=== PATIENT | female | born 1960 | race Caucasian/White ===

== ENCOUNTER → 2017-04-20 | Outpatient (CLI) | payer BC ==
[~2017-04-20] MED LIST: BYSTOLIC10 MG PO; BYSTOLIC2.5 MG PO; GLUCOPHAGE1000 MG PO; GLUCOPHAGE500 MG/TAB PO; GLUCOTROL 5M5 MG/TAB PO; JANUVIA 100MG100 MG PO; LEVOTHYROXIN0.075 MG PO; MULTIPLE VITAMI1 CAP PO; NORMODYNE100 MG; NORVASC 10MG10 MG PO; PRINIVIL20 MG; PRINIVIL5 MG PO; SIMVASTATIN40 MG PO; SYNTHROID0.075 MG/T PO
== END ==
LOC: MC.RAD 13:03
DX: Z12.31 Encounter for screening mammogram for malignant neoplasm of breast (principal)

== ENCOUNTER 2019-07-09 07:50 | Day surgery (SDC) | payer BC ==
[~2019-07-09] VITALS: Ht 160 cm; Wt 87.0 kg
[2019-07-09 08:21] VITALS: BP 111/77; PULSE 81; TEMP 97.8
[2019-07-09] MEDS ORDERED: FARXIGA10 PO (08:32)
[2019-07-09] MEDS ORDERED: PRENATAL TABLET PO (08:32)
[2019-07-09] MEDS ORDERED: ZESTRIL 5MG5 MG PO (08:32)
[2019-07-09 09:10] VITALS: BP 110/68; PULSE 79; TEMP 97.6
--- NOTE | 2019-07-09 09:10 | NUR ---
Patient brought back to bay [address] from End[facility] suite via cart. Ambulated to chair without difficulty. Placed on monitors, stable. IV infusing without difficulty. Alert but drowsy. Requesting water and diet soda at this time. Friend at bedside. Report recieved from SOPHIE Edgar. Will continue to monitor.
[2019-07-09 09:25] VITALS: BP 98/71; PULSE 77
--- NOTE | 2019-07-09 09:33 | NUR ---
Patient is doing well. Tolerating drink and starting to wake up. Dr. Garcia at bedside to discuss results. Requesting muffin at this time. Vital signs stable. Will continue to monitor.
[2019-07-09 09:40] VITALS: BP 119/76; PULSE 71
--- NOTE | 2019-07-09 09:40 | NUR ---
Patient states she is feeling ready to go home at this time. Tolerating food and drink well. IV removed. Ambulated to bathroom without difficulty. Vital signs stable. pt to get dressed at this time.
--- NOTE | 2019-07-09 10:05 | NUR ---
Discharge instructions reviewed with patient and friend. All questions answered. Pt wheeled down to lobby. Friend to drive patient home.
== END 2019-07-09 10:05 | disposition home or self-care (01) ==
LOC: SDCO 07:50
DX: Z12.11 Encounter for screening for malignant neoplasm of colon (principal); K63.89 Other specified diseases of intestine; K57.30 Diverticulosis of large intestine without perforation or abscess without bleeding; Z91.040 Latex allergy status; Z79.84 Long term (current) use of oral hypoglycemic drugs; I10 Essential (primary) hypertension; E11.9 Type 2 diabetes mellitus without complications; E03.9 Hypothyroidism, unspecified; Z80.0 Family history of malignant neoplasm of digestive organs
CPT/HCPCS: J2704; J7030

== ENCOUNTER 2019-10-27 15:19 | Inpatient (IN) | payer BC ==
[~2019-10-27] VITALS: Ht 157.5 cm; Wt 90.0 kg
[~2019-10-27 15:19] MED LIST changes: +FARXIGA10 PO; +PRENATAL TABLET PO; +ZESTRIL 5MG5 MG PO
[2019-10-27 16:10] LABS: COLLECTION METHOD CLEAN CATCH
[2019-10-27 16:13] LABS: BASO % 0.3 % (0.0-2.0); EOS % 0.1 % (0-4.0); GRAN # 9.7 (1.4-6.5); GRAN % 82.9 % (42.2-75.2); HEMATOCRIT 41.2 % (37.0-47.0); HEMOGLOBIN 14.1 g/dl (12.5-16.0); LYMPH # 1.2 (1.2-3.4); LYMPH % 10.3 % (20.0-51.0); MEAN CELL VOLUME 86 fl (80.0-100.0); MEAN CORPUSCULAR HEMOGLOBIN 30 pg (27.0-31.0); MEAN CORPUSCULAR HGB CONC 34 g/dl (33.0-37.0); MEAN PLATELET VOLUME 10.4 fl (7.4-10.4); MONO # 0.7 (0.1-0.6); MONO % 5.9 % (1.7-9.3); PLATELET COUNT 290 K/mm3 (130-400); RED BLOOD COUNT 4.78 M/mm3 (4.10-5.30); REDCELL DISTRIBUTION WIDTH-CV 12.6 % (11.5-14.5)
[2019-10-27 16:16] LABS: PH 6 (5-8); SQUAMOUS EPITHELIAL 0-2 /hpf; URINE APPEARANCE Clear; URINE BACTERIA None Seen /hpf; URINE BILIRUBIN Negative (NEGATIVE); URINE BLOOD Negative (NEGATIVE); URINE COLOR Yellow; URINE GLUCOSE 3+ (NEGATIVE); URINE KETONE 1+ (NEGATIVE); URINE LEUKOCYTE ESTERASE Negative (NEGATIVE); URINE NITRATE Negative (NEGATIVE); URINE PROTEIN(semi-quant) 1+ (NEGATIVE); URINE RBC 0-2 /hpf; URINE UROBILINOGEN Negative (NEGATIVE)
[2019-10-27 16:39] LABS: ALBUMIN 4.8 gm/dL (3.5-5.0); BILIRUBIN,TOTAL 0.8 mg/dL (0.0-1.0); C-REACTIVE PROTEIN 1.3 mg/dL (0.0-0.9); CALCIUM 10.3 mg/dL (8.4-10.2); CREATININE, serum 0.61 (0.52-1.25); POTASSIUM 4.1 mmol/L (3.4-5.0); TOTAL PROTEIN 8.8 gm/dL (6.4-8.2)
[2019-10-27 23:40] VITALS: BP 130/72; PULSE 82; TEMP 97.8
--- NOTE | 2019-10-27 23:40 | NUR ---
To room 346 via bed from PACU. Post op vitals initiated-stable. Admission assessment complete. Oriented to room and policy. Denies pain/shortness of breath/nausea. Dressing to abdomen-left lower afxxculj-HFV-qsmpk/medipore tape. Provided with clear liquid diet. Denies needs. Call light in reach. Will monitor.
[2019-10-27 23:55] VITALS: BP 147/69; PULSE 87
[2019-10-28] VITALS (13 sets, daily range): BP systolic 104–136; BP diastolic 51–79; PULSE 67–88; TEMP 97.5–98.2
--- NOTE | 2019-10-28 00:30 | NUR ---
Up to bathroom-stand by assist. Voided without difficulty. Denies pain/nausea/shortness of breath. Call light in reach. Will monitor.
--- NOTE | 2019-10-28 02:20 | NUR ---
Up to bathroom-stand by assist. Voided 600mls yellow urine. Denies pain/nausea/shortness of breath. Given more clear liquid diet. Tolerating well. Dressing to LLQ remains CDI. Call light in reach. Will monitor.
--- NOTE | 2019-10-28 03:39 | NUR ---
Rested off and on this shift. Post op vitals remained stable. Tolerating clear liquids with no c/o nausea. Denies pain/shortness of breath. Voiding. Belching-no flatus. Discussed importance of ambulation. Verbalizes understanding. IV to Right AC with LR@100mls/hr. SCDs bilat. Call light in reach. Will monitor.
[2019-10-28 07:34] LABS: BASO % 0.1 % (0.0-2.0); GRAN # 9.3 (1.4-6.5); GRAN % 89.6 % (42.2-75.2); HEMATOCRIT 39.1 % (37.0-47.0); HEMOGLOBIN 13.3 g/dl (12.5-16.0); LYMPH # 0.9 (1.2-3.4); LYMPH % 8.2 % (20.0-51.0); MEAN CELL VOLUME 88 fl (80.0-100.0); MEAN CORPUSCULAR HEMOGLOBIN 30 pg (27.0-31.0); MEAN CORPUSCULAR HGB CONC 34 g/dl (33.0-37.0); MEAN PLATELET VOLUME 10.7 fl (7.4-10.4); MONO # 0.2 (0.1-0.6); MONO % 1.6 % (1.7-9.3); PLATELET COUNT 263 K/mm3 (130-400); RED BLOOD COUNT 4.46 M/mm3 (4.10-5.30); REDCELL DISTRIBUTION WIDTH-CV 12.7 % (11.5-14.5)
[2019-10-28 07:40] LABS: CREATININE, serum 0.63 (0.52-1.25)
[2019-10-28 07:41] LABS: CALCIUM 9.2 mg/dL (8.4-10.2); POTASSIUM 4.1 mmol/L (3.4-5.0)
--- NOTE | 2019-10-28 08:00 | NUR ---
PATIENT IS A&O. VSS. DENIES PAIN. ABD INCISION DRESSING IS CD&I WITH GAUZE & TAPE. ABD IS ROUND, SOFT AND WITH POSITIVE BOWL SOUNDS. NO C/O N/V. TOLERATING CLEAR LIQUID DIET WELL. PATIENT REPORTS SHE IS BURPING BUT NOT PASSING GAS YET. PATIENT HAS SIGNIFICANT ABD/BOWL HISTORY WITH A RESECTION AND PREVIOUS COLOSTOMY WITH TAKE-DOWN. PATIENT DOING WELL POST OP. HEAD TO TOE WNL. AM MEDS GIVEN. PATIENT GOING FOR A WALK TO STIMULATE BOWLS. PATIENT INDEPENDENT IN ROOM AND HALLS.
--- NOTE | 2019-10-28 08:54 | NUR ---
PATIENT IS AMBULATING IN HALLWAYS AGAIN THIS AM TRYING TO GETS BOWLS TO MOVE. GAIT STEADY AND PATIENT TOLERATING ACTIVITY WELL.
--- NOTE | 2019-10-28 10:35 | NUR ---
PATIENT AMBULATED TO BATHROOM TO VOID AND REPORTS SHE WAS ABLE TO PASS A SMALL AMOUNT OF GAS FOR THE FIRST TIME. PATIENT NOW WALKING HALLS AGAIN.
--- NOTE | 2019-10-28 12:53 | NUR ---
SW met with patient about DC plan. Patient reports that her friend Blank Sher is her support at home. Patient reports that her brother Jesse is also an EMR contact at [phone] in [place]. Patient reports that [facility] PCP is Luis Martinez [facility] [place] . Patient denies needing any supports. SW educated on supports. Nothing follows.
--- NOTE | 2019-10-28 18:50 | NUR ---
PATIENT CAME OUT TO THE NURSES STATION AND WAS VERY HAPPY SHE WAS ABLE TO HAVE A LARGE, SOFT BM.
--- NOTE | 2019-10-28 20:00 | NUR ---
Report received. Assumed care for operations supervisor 2nd shift. Assessment complete. VS stable. A&Ox3. Denies pain/nausea/shortness of breath. Has been ambulating in the hallway. Voiding without difficulty. +flatus. +BM. Dressing to left lower abdomen gauze/medipore-CDI. Tolerating PO. Denies needs. Call light in reach. Will monitor.
[2019-10-29 03:19] VITALS: BP 119/64; PULSE 57; TEMP 97.4
[2019-10-29 07:44] VITALS: BP 114/61; PULSE 75; TEMP 98.3
--- NOTE | 2019-10-29 08:00 | NUR ---
PATIENT IS A&O AND MOVING AROUND ROOM INDEPENDENTLY WITH STEADY GAIT. VSS. DENIES PAIN. ABD IS ROUND, SOFT AND WITH POSITIVE BOWL SOUNDS. ABD DRESSING IS CD&I WITH GAUZE & TAPE. NO C/O N/V. RIGHT AC IV TO INT. PATIENT TOLERATING LOW FIBER DIET WELL. AM BS WAS 199, SSI GIVEN. PATIENT NOW BACK ON ALL SCHEDULED HOME MEDICATIONS, GIVEN. HEAD TO TOE WNL. PATIENT IS PASSING GAS AND HAD A LARGE, SOFT BM YESTERDAY EVENING. PATIENT HOPING TO DISCHARGE HOME LATER TODAY. PATIENT GIVEN PERSONAL CARE ITEMS AND IS GETTING CLEANED UP. NO OTHER NEEDS AT THIS TIME.
[2019-10-29 11:39] VITALS: BP 115/58; PULSE 79; TEMP 97.6
[2019-10-29] MEDS ORDERED: NORCO 325 MG-51 TAB PO (12:30)
[2019-10-29] MEDS ORDERED: MOTRIN 600600 MG/TAB PO (12:31)
--- NOTE | 2019-10-29 12:34 | NUR ---
First visit from the materials mgmt tech. No needs right now.
--- NOTE | 2019-10-29 12:40 | NUR ---
AT BEDSIDE. SEE DISCHARGE ORDERS.
--- NOTE | 2019-10-29 14:00 | NUR ---
PATIENT DISCHARGING HOME VIA WC TO PERSONAL VEHICLE WITH FRIEND. GAVE DISCHARGE INSTRUCTIONS, PRESCRIPTION & F/U APT. ANSWERED ALL QUESTIONS/CONCERNS. DC'D IV SITE, COVERED WITH GAUZE & BANDAID. TELE DC'D. CHANGE ABD DRESSING BEFORE DISCHARGE, APPLIED 4X4'S & HYPAFIX. PATIENT DRESSED AND PERSONAL BELONGINGS PACKED. PATIENT ESCORTED OUT.
== END 2019-10-29 14:00 | disposition home or self-care (01) | DRG 355 ==
LOC: COL.ER 15:19 → SURG 17:31
PROVIDERS: Emergency Medicine; ADMIT Surgery
PROC: 0WUF0JZ Supplement Abdominal Wall with Synthetic Substitute, Open Approach (ICD-10-PCS; principal; 2019-10-27 21:30)
DX: K43.0 Incisional hernia with obstruction, without gangrene (principal); E11.9 Type 2 diabetes mellitus without complications; E03.9 Hypothyroidism, unspecified; Z90.49 Acquired absence of other specified parts of digestive tract; Z79.84 Long term (current) use of oral hypoglycemic drugs; Z91.040 Latex allergy status; I10 Essential (primary) hypertension
CPT/HCPCS: C1781; J0330; J1100; J1815; J1885; J2405; J2704; J3010; J7030; J7120; Q9967